=== PATIENT | female | born 1955 | race Caucasian/White ===

== ENCOUNTER 2022-05-28 07:43 | Day surgery (SDC) | payer OTHER, MEDICARE ==
[2022-05-25 14:11] VITALS: BMI 30.1
[2022-05-28] MEDS ORDERED: CIPROFLOXACIN 0.3% EYE DROPS 5 ML BOTTLE ONE (08:12)
[2022-05-28] MEDS ORDERED: CYCLOPENTOLATE 2% OPHTH SOLN 2 ML BOTTLE ONE (08:12)
[2022-05-28] MEDS ORDERED: TROPICAMIDE 1% OPHTH SOLN 15 ML BOTTLE ONE (08:12)
[2022-05-28] MEDS ORDERED: PHENYLEPHRINE 2.5% OPHTH SOLN 15 ML BOTTLE ONE (08:12)
[2022-05-28] MEDS ORDERED: CYCLOPENTOLATE 2% OPHTH SOLN 2 ML BOTTLE OS ONE ×2 (08:30→08:40)
[2022-05-28] MEDS ORDERED: TROPICAMIDE 1% OPHTH SOLN 15 ML BOTTLE OS ONE ×3 (08:30→08:40)
[2022-05-28] MEDS ORDERED: CIPROFLOXACIN 0.3% EYE DROPS 5 ML BOTTLE OS ONE ×2 (08:30→08:40)
[2022-05-28] MEDS ORDERED: PHENYLEPHRINE 2.5% OPHTH SOLN 15 ML BOTTLE OS ONE ×2 (08:35→08:40)
[2022-05-28] MEDS ORDERED: MIDAZOLAM HCL 2 MG/2 ML SINGLE DOSE VIAL ONE (09:41)
[2022-05-28] MEDS ORDERED: TETRACAINE 0.5% OPHTH SOLN 2 ML BOTTLE ONE (09:57)
[2022-05-28] MEDS ORDERED: BSS (NA/CA/MG/K) BALANCED SALT SOLUTION OPHTH SOLN 15 ML BOTTLE ONE (09:57)
[2022-05-28] MEDS ORDERED: NEO/POLYMYX B SULF/DEXAMETH OPHTHALMIC 5ML BOTTLE ONE (09:57)
[2022-05-28] MEDS ORDERED: CARBACHOL 0.01% INTRA-OCULAR 1.5 ML VIAL ONE (09:57)
[2022-05-28] MEDS ORDERED: LIDOCAINE 1% P/F 10 MG/ML VIAL ONE (09:57)
[2022-05-28 10:22] VITALS: TEMP 97.8
[2022-05-28 11:54] VITALS: BP 114/72; PULSE 71
== END 2022-05-28 11:20 | disposition home or self-care (01) ==
LOC: FASU 07:43
PROVIDERS: ATTEND Ophthalmology
PROC: 08RK3JZ Replacement of Left Lens with Synthetic Substitute, Percutaneous Approach (ICD-10-PCS; principal; 2022-05-28 09:45)
DX: H26.8 Other specified cataract (principal)
CPT/HCPCS: 66984; V2632

== ENCOUNTER 2022-07-22 08:53 | Day surgery (SDC) | payer OTHER, MEDICARE ==
[2022-06-30 11:51] VITALS: BMI 30.1
[2022-07-22] MEDS: CYCLOPENTOLATE 2% OPHTH SOLN 2 ML BOTTLE ONE ×3 (10:10→10:20)
[2022-07-22] MEDS: PHENYLEPHRINE 2.5% OPHTH SOLN 15 ML BOTTLE ONE ×3 (10:10→10:20)
[2022-07-22] MEDS: TROPICAMIDE 1% OPHTH SOLN 15 ML BOTTLE ONE ×3 (10:10→10:20)
[2022-07-22] MEDS: CIPROFLOXACIN 0.3% EYE DROPS 5 ML BOTTLE ONE ×3 (10:10→10:20)
[2022-07-22 10:14] VITALS: BP 124/76; PULSE 78; TEMP 97.7
[2022-07-22] MEDS ORDERED: TETRACAINE 0.5% OPHTH SOLN 2 ML BOTTLE ONE (10:33)
[2022-07-22] MEDS ORDERED: LIDOCAINE 1% P/F 10 MG/ML VIAL ONE (10:33)
[2022-07-22] MEDS ORDERED: NEO/POLYMYX B SULF/DEXAMETH OPHTHALMIC 5ML BOTTLE ONE (10:33)
[2022-07-22] MEDS ORDERED: BSS (NA/CA/MG/K) BALANCED SALT SOLUTION OPHTH SOLN 15 ML BOTTLE ONE (10:33)
[2022-07-22] MEDS ORDERED: CARBACHOL 0.01% INTRA-OCULAR 1.5 ML VIAL ONE (10:33)
[2022-07-22] MEDS ORDERED: MIDAZOLAM HCL 2 MG/2 ML SINGLE DOSE VIAL ONE (11:07)
[2022-07-22 13:59] VITALS: RESP 18
== END 2022-07-22 12:35 | disposition home or self-care (01) ==
LOC: FASU 08:53
PROVIDERS: ATTEND Ophthalmology
PROC: 08RJ3JZ Replacement of Right Lens with Synthetic Substitute, Percutaneous Approach (ICD-10-PCS; principal; 2022-07-22 11:17)
DX: H26.8 Other specified cataract (principal); H21.541 Posterior synechiae (iris), right eye
CPT/HCPCS: 66982; V2632